=== PATIENT | male | born 1955 | race Caucasian/White ===

== ENCOUNTER → 2020-07-08 | Outpatient (CLI) | payer MEDICARE, OTHER ==
[~2020-07-08] MED LIST: ACETAMINOPHEN-1 EAC1 PO; ALDACTONE 25MG25 MG PO; AMIODARONE HCL200 MG PO; ASPIR 8181 MG PO; BUMETANIDE2 MG PO; CLOTRIMAZOLE-BE30 ML TP; ENTRESTO 24 MG1 EACH PO; ENTRESTO 49 MG1 EACH PO; GLUCOPHAGE1000 MG PO; HYDROCHLOROTHIA25 MG PO; K-DUR TAB 10 M10 MEQ PO; LASIX40 MG PO; LEVEMIR100 UNIT/1 SQ; LEVOFLOXACIN500 MG PO; LIPITOR40 MG PO; LOPRESSOR 25 MG25 MG PO; LOPRESSOR 50 MG50 MG PO; LOPRESSOR50 MG PO; PLAVIX75 MG PO; TRULICITY0.75 MG/0. SQ; ZAROXOLYN/DIULO5 MG PO
== END ==
LOC: CT 11:29
DX: I65.23 Occlusion and stenosis of bilateral carotid arteries (principal); I65.02 Occlusion and stenosis of left vertebral artery
CPT/HCPCS: 36415; 70498; 82565; Q9967

== ENCOUNTER → 2020-11-17 | Outpatient (CLI) | payer MEDICARE | LOC: ECHO 10:00 | DX: I50.22 Chronic systolic (congestive) heart failure (principal); I25.5 Ischemic cardiomyopathy | CPT/HCPCS: ECHO; 93306 ==